=== PATIENT | female | born 1975 | race Caucasian/White ===

== ENCOUNTER → 2016-10-01 | Outpatient (CLI) | payer BC ==
--- NOTE | 2016-10-01 18:20 | Diagnostic Imaging Report ---
INDICATION: Digital screening mammography, bilateral. The current study was also evaluated with a Computer Aided Detection (CAD) system. COMPARISON: Comparison is made to study of 11/06/2014. FINDINGS: There is high breast parenchymal density. No dominant mass or suspicious calcification is identified. Overall, there has been no adverse change. IMPRESSION: Negative mammograms. High breast parenchymal density limits mammographic sensitivity. Continued physical examination and annual mammographic followup are recommended. ACR BI-RADS Category 1: Negative. Result letter will be mailed to the patient. Note: At least 10% of breast cancer is not imaged by mammography. Dictated by: Dictated on workstation # [id number]
== END ==
LOC: RAD 08:08
PROVIDERS: ATTEND Nurse Practitioner Family
DX: Z12.31 Encounter for screening mammogram for malignant neoplasm of breast (principal); R92.2 Inconclusive mammogram